=== PATIENT | female | born 1985 | race Caucasian/White ===

== ENCOUNTER 2020-02-13 12:16 | Outpatient (CLI) | payer OTHER, SELFPAY ==
--- NOTE | 2020-02-15 15:08 | WPDPFTINT ---
PFT Interpretation PFT Interpretation: Date of service: Feb 13, 2020 Requesting Physician: Dr. Lester Gonzalez Reason for testing: [facility]CTION TESTS Results are reliable and reproducible Spirometry: FEV1 is 81%, normal. FVC is 78%, mildly decreased. FEV1% is normal. No air flow obstruction. No change with bronchodilator. Lung volumes: TLC 82%, normal. Vital capacity 79% mildly decreased. RV/TLC is increased consistent with mild air trapping. Normal airway resistance DLCO 62% mildly decreased. Flow volume loop is normal IMPRESSION: Mild ventilatory impairment without airflow obstruction, mild air trapping, mild decrease in diffusion. This is a nonspecific pattern. She has increased BMI which may contribute to increase in dyspnea on exertion.
== END 2020-02-13 12:17 | disposition home or self-care (01) ==
LOC: CHSCARD 12:21
PROVIDERS: PCP Family Medicine
DX: R06.02 Shortness of breath (principal)
CPT/HCPCS: 94060; 94726; 94729

== ENCOUNTER 2020-02-20 12:12 | Outpatient (CLI) | payer OTHER, SELFPAY ==
--- NOTE | 2020-02-21 15:06 | WPDHOLTEREM ---
Holter/Event Monitor Holter/Event Monitor Date of procedure: 02/20/20 Procedure Type: 24 hour holter monitor Indications: Palpitations Conclusion: 1. 24 hour holter monitor on 02/20/20. 2. Underlying rhythm is sinus rhythm. HR range 65-140 bpm; average HR 95 bpm. 3. There are 3 premature supraventricular complexes. No supraventricular tachycardia. 4. There are 14 premature ventricular complexes. No ventricular tachycardia. 5. No sinoatrial or atrioventricular blocks. No significant pauses greater than 2 seconds. 6. Patient reports symptoms of anxiety, dizziness/migraine, tired, winded which demonstrate sinus rhythm, HR range 71-110 bpm.
== END 2020-02-20 12:13 | disposition home or self-care (01) ==
LOC: CHSCARD 12:13
PROVIDERS: PCP Family Medicine; Visit Provider Nurse Practitioner
DX: R00.2 Palpitations (principal)
CPT/HCPCS: 93225; 93226